=== PATIENT | male | born 1940 | race Caucasian/White ===

== ENCOUNTER 2020-12-26 14:59 | Outpatient (CLI) | payer MEDICARE ==
[~2020-12-26 14:59] MED LIST: AMLO-211 PO; DIPH25CA61 PO; EZET10TA70 PO; LISI40TA9 PO; LORA10TA75 PO; SIMV20TA19 PO; TADA5TAB2 PO; TEST100V SC; Vitamin D3 PO
== END 2020-12-26 23:59 | disposition home or self-care (01) ==
LOC: STAR 14:59
PROVIDERS: ATTEND Urology
DX: Z02.9 Encounter for administrative examinations, unspecified (principal)

== ENCOUNTER 2021-01-01 10:04 | Day surgery (SDC) | payer MEDICARE ==
[~2021-01-01] VITALS: Ht 185.4 cm; Wt 124.5 kg
[2021-01-01 10:55] VITALS: BP 123/73
[2021-01-01] MEDS ORDERED: CHLORHEXIDINE 15 ML UDC PO ONE (11:00)
[2021-01-01] MEDS ORDERED: LACTATED RINGERS 1,000 ML IV SCH (11:00)
[2021-01-01] MEDS ORDERED: FENTANYL PF 250 MCG/5ML ONE (14:08)
[2021-01-01] MEDS ORDERED: hydrALAzine 20 MG/ML, 1ML IV PRN (14:30)
[2021-01-01] MEDS ORDERED: ACETAMINOPHEN 325 MG TABLET PO PRN (14:30)
[2021-01-01] MEDS ORDERED: morphine SULFATE 10 MG/ML, 1ML IVPush PRN (14:30)
[2021-01-01] MEDS ORDERED: GEMCITABINE HCL 1,000 MG in SODIUM CHLORIDE 0.9% 23.7 ML IS ONE (14:30)
[2021-01-01] MEDS ORDERED: LABETALOL 5MG/ML, 20ML IV PRN (14:30)
[2021-01-01] MEDS ORDERED: HYDROmorphone 1 MG/ML, 1ML INJ IVPush PRN (14:30)
[2021-01-01] MEDS ORDERED: ONDANSETRON 2MG/ML, 2ML IVPush PRN (14:30)
[2021-01-01] MEDS ORDERED: MEPERIDINE/PF 25MG/0.5ML IVPush PRN (14:30)
[2021-01-01] MEDS ORDERED: GLYCOPYRROLATE 0.2MG/1ML, 5ML ONE (14:40)
[2021-01-01] MEDS ORDERED: CEFAZOLIN 1,000 MG ONE (14:40)
[2021-01-01] MEDS ORDERED: PROPOFOL 10 MG/ML, 20ML ONE (14:40)
[2021-01-01] MEDS ORDERED: NEOSTIGMINE 1 MG/ML, 10ML ONE (14:40)
[2021-01-01] MEDS ORDERED: ROCURONIUM 10MG/ML,5ML ONE (14:40)
[2021-01-01] MEDS ORDERED: FENTANYL PF 100 MCG/2ML ONE ×2 (16:09→16:39)
[2021-01-01] MEDS: FENTANYL PF 100 MCG/2ML IV PRN ×3 (16:12→16:41)
[2021-01-01] MEDS ORDERED: OPIUM/BELLADONNA SUPP.RECT 16.2-60 MG ONE (16:15)
[2021-01-01] MEDS ORDERED: OPIUM/BELLADONNA SUPP.RECT 16.2-60 MG PR PRN ×2 (16:30)
[2021-01-01] MEDS ORDERED: ACETAMINOPHEN 650 MG/20.3 ML UDC ONE (16:39)
[2021-01-01] MEDS ORDERED: OXYcodone 5 MG/5 ML ORAL.SOL UDC ONE ×2 (16:40→18:00)
[2021-01-01] MEDS: OXYcodone 5 MG/5 ML ORAL.SOL UDC PO PRN ×2 (16:44→18:00)
== END 2021-01-01 18:25 | disposition home or self-care (01) ==
LOC: OUT 10:04
PROVIDERS: ATTEND Urology
DX: C67.3 Malignant neoplasm of anterior wall of bladder (principal); N30.20 Other chronic cystitis without hematuria; N40.1 Benign prostatic hyperplasia with lower urinary tract symptoms; N39.43 Post-void dribbling; I10 Essential (primary) hypertension; E11.9 Type 2 diabetes mellitus without complications; E78.00 Pure hypercholesterolemia, unspecified; Z79.899 Other long term (current) drug therapy; Z98.890 Other specified postprocedural states; Z80.42 Family history of malignant neoplasm of prostate
CPT/HCPCS: 51720; 52235; 88305; J0690; J2704; J2710; J3010; J7120; J9201